=== PATIENT | female | born 1955 | race Caucasian/White ===

== ENCOUNTER → 2016-08-30 | Outpatient (CLI) | payer BC ==
[~2016-08-30] MED LIST: CALCIUM 600600 M2 PO; SUPER EPA 2002000 MG PO; VITAMIN D32000 IU PO
== END ==
LOC: MC.RAD 06:59
DX: Z12.31 Encounter for screening mammogram for malignant neoplasm of breast (principal)

== ENCOUNTER → 2017-01-12 | Outpatient (REF) | LOC: WSOH 17:30 | DX: Z02.89 Encounter for other administrative examinations (principal) ==

== ENCOUNTER → 2018-08-16 | Outpatient (CLI) | payer BC | LOC: MC.RAD 07-12 07:00 | DX: Z12.31 Encounter for screening mammogram for malignant neoplasm of breast (principal) ==

== ENCOUNTER → 2020-04-08 | Outpatient (CLI) | payer BC | LOC: MC.RAD 07:15 | DX: Z12.31 Encounter for screening mammogram for malignant neoplasm of breast (principal) ==

== ENCOUNTER 2020-05-29 07:03 | Day surgery (SDC) | payer OTHER ==
[~2020-05-29] VITALS: Ht 172.7 cm; Wt 60.7 kg
[2020-05-29 07:38] VITALS: BP 113/85; PULSE 80; TEMP 97.8
[2020-05-29 08:44] VITALS: BP 120/81; PULSE 69; TEMP 97.7
--- NOTE | 2020-05-29 08:55 | NUR ---
PT RETURNED FROM ENDO PROCEDURE ROOM INTO ENDO ROOM #2. PT DENIES PAIN OR NAUSEA AT THIS TIME. TOLERATING WATER. VSS, AFEBRILE. LUNGS CLEAR, HRR, BOWEL SOUNDS AUDIBLE. WILL CONT TO MONITOR.
[2020-05-29 09:00] VITALS: BP 141/83; PULSE 67
--- NOTE | 2020-05-29 09:24 | NUR ---
PT TOLERATING WATER WITHOUT NAUSEA, DENIES PAIN OR DISCOMFORT AT THIS TIME. IV DC'D, PT TOLERATED WELL. DISMISSAL INSTRUCTIONS GIVEN, PT SIGNED WITHOUT QUESTIONS. PT TAKEN TO PATIENT ENTRANCE AND DISCHARGED TO FAMILY VEHICLE, DRIVING.
== END 2020-05-29 09:00 | disposition home or self-care (01) ==
LOC: SDCO 07:03
DX: Z12.11 Encounter for screening for malignant neoplasm of colon (principal); D12.8 Benign neoplasm of rectum; K62.89 Other specified diseases of anus and rectum
CPT/HCPCS: J2405; J2704; J3010; J7030